=== PATIENT | female | born 1960 | race Two or more races ===

== ENCOUNTER 2019-01-14 14:35 | Emergency (ER) | payer OTHER ==
[~2019-01-14] VITALS: Ht 170.2 cm; Wt 86.2 kg
[2019-01-14 14:43] VITALS: BP 153/95
[2019-01-14] MEDS ORDERED: IBUPROFEN 800 MG TAB PO ONE (16:15)
== END 2019-01-14 16:44 | disposition home or self-care (01) ==
LOC: ER 14:41
DX: S63.273A Dislocation of unspecified interphalangeal joint of left middle finger, initial encounter (principal); F17.210 Nicotine dependence, cigarettes, uncomplicated; X50.0XXA Overexertion from strenuous movement or load, initial encounter; Y93.89 Activity, other specified; Y99.8 Other external cause status; Y92.89 Other specified places as the place of occurrence of the external cause
CPT/HCPCS: 26770; 73140